=== PATIENT | male | born 1960 | race African-American/Black ===

== ENCOUNTER 2019-03-26 23:20 | Emergency (ER) | payer MEDICARE ==
--- NOTE | 2019-03-27 00:18 | RADIOLOGY REPORT (SQ) ---
EXAM DESCRIPTION: XR HIP 2 OR MORE VIEWS COMPLETED DATE/TME: 03/26/2019 23:33 CLINICAL HISTORY: 58 years, Male, Total hip, dislocated COMPARISON: None. NUMBER OF VIEWS: Three views were obtained TECHNIQUE: Frontal and lateral radiographs of the left hip were obtained LIMITATIONS: None. FINDINGS: Visualized are postsurgical changes of right total hip arthroplasty. In addition, there are also postsurgical changes of left total hip arthroplasty. However, the femoral component of the left hip prosthesis is laterally and superiorly dislocated relative to the acetabular cup. No additional osseous anomalies are appreciated. IMPRESSION: Dislocation of the left hip prosthesis, as above. copyright 2010 [email or web address]- All Rights Reserved
[2019-03-27] MEDS ORDERED: FENTANYL CITRATE INJ/PF 100 MCG/2 ML AMPUL IV ONE ×2 (00:32→06:13)
[2019-03-27] MEDS ORDERED: PROPOFOL INJ 200 MG/20 ML VIAL IV ONE ×3 (00:34→03:06)
--- NOTE | 2019-03-27 00:35 | ER Document Report ---
Entered by BI JOEL SCRIBE 03/27/19 0002 Acting as scribe for:IRMA MAYFIELD MD ED General - General Stated Complaint: LEFT HIP PAIN Time Seen by Provider: 03/26/19 23:26 Mode of Arrival: Medic Information source: Patient Notes: Patient is a 58 year old male with arthritis, HTN, HLD, presents to the emergency department complaining of left hip pain. Patient states he was sitting on porch steps approximately 2 hours ago when he felt his left hip "pop out of place". He also complains of mild BLE swelling. Patient states he recently moved here from [place] 2 months ago and has yet to establish primary care. He reports an prior episode of "irregular heart beat" that was converted on its own. Past Medical History - General Information source: Patient - Social History Smoking Status: Current Every Day Smoker Cigarette use (# per day): Yes - 1 PPD Chew tobacco use (# tins/day): No Smoking Education Provided: No Frequency of alcohol use: Rare Drug Abuse: None Lives with: Family Family History: Reviewed & Not Pertinent - Past Medical History Cardiac Medical History: Reports: Hx Hypercholesterolemia, Hx Hypertension Musculoskeletal Medical History: Reports Hx Arthritis Past Surgical History: Reports: Hx Orthopedic Surgery - BL TKR, BL total hip replacements Review of Systems - Review of Systems Constitutional: No symptoms reported EENT: No symptoms reported Cardiovascular: No symptoms reported Respiratory: No symptoms reported Gastrointestinal: No symptoms reported Genitourinary: No symptoms reported Male Genitourinary: No symptoms reported Musculoskeletal: See HPI Skin: No symptoms reported Hematologic/Lymphatic: No symptoms reported Neurological/Psychological: No symptoms reported -: Yes All other systems reviewed and negative Physical Exam - Vital signs Vitals: Pulse Resp BP Pulse Ox 98 20 134/93 H 96 03/27/19 01:58 03/27/19 01:58 03/27/19 01:58 03/27/19 01:58 - Notes Notes: GENERAL: Alert, interacts well. No acute distress. HEAD: Normocephalic, atraumatic. EYES: Pupils equal, round, and reactive to light. Extraocular movements intact. ENT: Oral mucosa moist, tongue midline. NECK: Full range of motion. Supple. Trachea midline. LUNGS: Clear to auscultation bilaterally, no wheezes, rales, or rhonchi. No respiratory distress. HEART: Regular rate and rhythm. No murmurs, gallops, or rubs. ABDOMEN: Soft, non-tender. Non-distended. Bowel sounds present in all 4 quadrants. No guarding, rigidity, or rebound. EXTREMITIES: Moves all 4 extremities spontaneously. Mild edema to the BLE. Left lower extremity is slightly shortened and externally rotated. There is a palpable defect in the left hip region. NEUROLOGICAL: Alert and oriented x3. Normal speech. PSYCH: Normal affect, normal mood. SKIN: Warm, dry, normal turgor. No rashes or lesions noted. Course - Vital Signs Vital signs: Temp Pulse Resp BP Pulse Ox 84 22 H 116/80 99 03/27/19 02:47 03/27/19 02:47 03/27/19 02:47 03/27/19 02:47 - Laboratory Result Diagrams: 03/27/19 00:45 03/27/19 00:45 Laboratory results interpreted by me: 03/27/19 03/27/19 00:45 00:45 WBC 12.7 H MCH 26.8 L RDW 17.8 H Seg Neutrophils % 79.1 H Lymphocytes % 12.3 L Absolute Neutrophils 10.0 H BUN 21 H Calcium 11.5 H Direct Bilirubin 0.9 H ALT 11 L - Diagnostic Test Radiology reviewed: Image reviewed, Reports reviewed - Left hip x-ray shows a dislocation of the prosthetic total hip. Procedures - Conscious Sedation Conscious sedation Time started: 02:00 Consent obtained: Yes Indication: Dislocated hip Pt with a mild systemic disease.: P2. - ASA Classification. Airway Evaluation: Normal anatomy Mallampati Classification: Class 2 Used during procedure: Suction available, IV access obtained, Pulse ox on pt., surveillance monitor on pt. Medications administered: Diprivan Reversal agents: None I personally performed/intraservice time: Sedation, Procedure, 30 min or less Complications: No - Joint Reduction/Fracture Care Left Hip Time completed: 02:10 Consent obtained: Yes Conscious sedation: Yes Pre-procedure NV exam: Yes Post-procedure NV exam: Yes Post-reduction x-ray: Joint reduced, Joint not reduced Complications: No Notes: 03/27/19 02:14 Following relaxation with the propofol, the patient was placed supine. The left hip and knee replaced in flexion. The left lower extremity was pulled with upward traction until the hip was felt to reenter the acetabulum. The leg was then placed back on the stretcher and an abduction pillow was ordered. A postreduction x-ray was ordered. 03/27/19 02:40 The x-ray showed the joint was unchanged from initial x-ray. The nurse did report that the patient wanted to scoot up in the bed and they helped him prior to repeating his x-ray. 03/27/19 03:04 The patient was given additional propofol, attempts were made to relocate the hip. It did feel like it fell into place, but x-rays showed that it was hung on the rim. A lateral showed it was still posteriorly. The hip was then brought into extreme abduction while pulling up at about a 45 to 60 degree angle. At the same time my assistant program manager was pushing on the femoral head from behind and it was felt to fully relocate. A repeat x-ray confirmed the prosthesis was in the proper relationship to the acetabular prosthesis. The abduction wedge pillow was then reapplied. Discharge - Discharge Clinical Impression: S/P closed reduction of dislocated total hip prosthesis Dislocation of hip joint prosthesis Qualifiers: Encounter type: initial encounter Qualified Code(s): T84.029A - Dislocation of unspecified internal joint prosthesis, initial encounter; Z96.649 - Presence of unspecified artificial hip joint Condition: Stable Disposition: HOME, SELF-CARE Additional Instructions: Dislocated Artificial Hip You have been treated for a dislocation of your hip replacement prosthesis. Once the joint prosthesis has been repositioned, you can resume your normal activities. Allow time to recover from whatever sedation was required to reduce the joint dislocation. Use a cane, crutches, or walker as needed. Pain medicine may be needed for the next few days. Do not lie on your operated hip until your doctor approves. A dislocation may occur when the hip is flexed while turned inward. There are some activities you should avoid to decrease the risk of having another dislocation. Do not cross your legs, and keep your knees apart getting in and out of your car. Do not lean forward beyond 90 degrees or raise your knee higher than the level of your hip. Do not sit in low chairs Do not pivot with your foot on the ground, but take short steps when you turn. Call your doctor for a follow-up exam as recommended. Return here if there is increasing pain, numbness or weakness in the leg or foot, or recurrent dislocation. Use the wedge pillow when you are sleeping to keep your thighs abducted. Call the [facility] on Friday to schedule an appointment this week. RETURN TO THE EMERGENCY ROOM IF ANY NEW OR WORSENING SYMPTOMS. Referrals: [facility] [Provider Group] - Follow up in 3-5 days (Call the office Friday for an appointment this week.) Scribe Attestation: 03/27/19 00:19 I personally performed the services described in the documentation, reviewed and edited the documentation which was dictated to the scribe in my presence, and it accurately records my words and actions. I personally performed the services described in the documentation, reviewed and edited the documentation which was dictated to the scribe in my presence, and it accurately records my words and actions.
[2019-03-27 01:00] LABS: ABSOLUTE BASOPHILS # (AUTO) 0.1 10^3/uL (0.0-0.2); ABSOLUTE EOSINOPHILS # (AUTO) 0.2 10^3/uL (0.0-0.6); ABSOLUTE LYMPHOCYTES (AUTO) 1.6 10^3/uL (0.5-4.7); ABSOLUTE MONOCYTES (AUTO) 0.8 10^3/uL (0.1-1.4); BASOPHILS % (AUTO) 0.7 % (0-2); EOSINOPHILS % (AUTO) 1.8 % (0-6); HEMOGLOBIN 13.7 g/dL (13.5-17.0); LYMPHOCYTES % (AUTO) 12.3 % (13-45); MEAN CORPUSCULAR HEMOGLOBIN 26.8 pg (27.0-33.4); MEAN CORPUSCULAR HGB CONC 33.4 g/dL (32.0-36.0); MEAN CORPUSCULAR VOLUME 80 fl (80-97); MONOCYTES % (AUTO) 6.1 % (3-13); PLATELET COUNT 192 10^3/uL (150-450); RED CELL DISTRIBUTION WIDTH 17.8 % (11.5-14.0); SEGMENTED NEUTROPHILS % (AUTO) 79.1 % (42-78); TOTAL CELLS COUNTED % (AUTO) 100 %; WHITE BLOOD COUNT 12.7 10^3/uL (4.0-10.5)
[2019-03-27 01:17] LABS: ALANINE AMINOTRANSFERASE 11 U/L (21-72); ALBUMIN 4.6 g/dL (3.5-5.0); ALKALINE PHOSPHATASE 117 U/L (38-126); ANION GAP 13 (5-19); ASPARTATE AMINO TRANSFERASE 18 U/L (17-59); BILIRUBIN,DIRECT 0.9 mg/dL (0.0-0.4); BILIRUBIN,TOTAL 0.9 mg/dL (0.2-1.3); BLOOD UREA NITROGEN 21 mg/dL (7-20); CALCIUM 11.5 mg/dL (8.4-10.2); CARBON DIOXIDE 26 mmol/L (22-30); CHLORIDE 102 mmol/L (98-107); GLUCOSE 102 mg/dL (75-110); POTASSIUM 3.7 mmol/L (3.6-5.0); SODIUM 141.4 mmol/L (137-145); TOTAL PROTEIN 8.1 g/dL (6.3-8.2)
[2019-03-27] MEDS ORDERED: NORMAL SALINE 1000 ML 1,000 ML IV ONE (02:05)
[2019-03-27] MEDS ORDERED: RINGERS SOLUTION,LACTATED 1,000 ML IV ONE (03:23)
--- NOTE | 2019-03-27 03:25 | RADIOLOGY REPORT (SQ) ---
EXAM DESCRIPTION: XR HIP 2 OR MORE VIEWS COMPLETED DATE/TME: 03/27/2019 02:11 CLINICAL HISTORY: 58 years, Male, post reduction COMPARISON: 03/26/2019 NUMBER OF VIEWS: One TECHNIQUE: AP view of the left hip LIMITATIONS: None. FINDINGS: The previously seen left hip dislocation has been reduced. No fracture is identified. There are changes of a left hip arthroplasty with no periprosthetic lucencies. IMPRESSION: Interval reduction of the left hip dislocation. copyright 2010 [employer]- All Rights Reserved
[2019-03-27] MEDS ORDERED: HYDROCODONE/ACETAMINOPHEN 5-325 MG (6 TAB/ER DISP) PO PRN (06:14)
[2019-03-27 06:37] VITALS: BP 122/87
== END 2019-03-27 06:37 | disposition home or self-care (01) ==
LOC: ER 23:20
DX: T84.021A Dislocation of internal left hip prosthesis, initial encounter (principal); Y83.8 Other surgical procedures as the cause of abnormal reaction of the patient, or of later complication, without mention of misadventure at the time of the procedure; I10 Essential (primary) hypertension; F17.210 Nicotine dependence, cigarettes, uncomplicated; R60.0 Localized edema
CPT/HCPCS: 99284; 96360; 99152; 36415; 85025; 80053; 73502 ×2; 27265; J3010; J7030; J7120; J2704; A9270; 96361

== ENCOUNTER 2019-07-30 16:43 | Emergency (ER) | payer MEDICARE, MEDICAID ==
--- NOTE | 2019-07-30 17:29 | RADIOLOGY REPORT (SQ) ---
EXAM DESCRIPTION: HIP LEFT AP/LATERAL COMPLETED DATE/TIME: 07/30/2019 5:20 pm REASON FOR STUDY: left hip pain COMPARISON: None. NUMBER OF VIEWS: Two views. TECHNIQUE: AP pelvis and additional frog-leg view of the left hip. LIMITATIONS: None. FINDINGS: MINERALIZATION: Normal. LEFT HIP: Left hip arthroplasty. Dislocation. RIGHT HIP: Right hip arthroplasty. PUBIS AND ISCHIUM: No fracture. PELVIS: No fracture. SACRUM: No fracture or dislocation. No worrisome bone lesions. LOWER LUMBAR SPINE: Lower lumbar degenerative disc disease and spondylosis. SOFT TISSUES: No findings. OTHER: No other significant finding. IMPRESSION: Dislocation of the left hip. Lumbar degenerative changes. TECHNICAL DOCUMENTATION: JOB ID: [id number] [employer]- All Rights Reserved Reading location - IP/workstation name: [email or web address]
[2019-07-30] MEDS ORDERED: HYDROMORPHONE HCL INJ/PF 2 MG/ML AMPULE IV ONE ×2 (17:54→20:19)
--- NOTE | 2019-07-30 18:02 | ER Document Report ---
ED Medical Screen (RME) - General Chief Complaint: Hip Pain Stated Complaint: LEFT HIP PAIN Time Seen by Provider: 07/30/19 17:54 Mode of Arrival: Medic Information source: Patient Notes: 58-year-old male with history of bilateral hip replacements bilateral knee replacements presents emergency department with left hip pain reports he sat down his hip popped out. Patient has good pedal pulse. Reports this happened to him before. Patient is complaining of pain. I have greeted and performed a rapid initial assessment of this patient. A comprehensive ED assessment and evaluation of the patient, analysis of test results and completion of the medical decision making process will be conducted by additional ED providers. Dictation of this chart was performed using voice recognition software; therefore, there may be some unintended grammatical errors. TRAVEL OUTSIDE OF THE [place] IN LAST 30 DAYS: No - Related Data Allergies/Adverse Reactions: No Known Allergies Allergy (Unverified 07/30/19 17:01) Home Medications: gabapentin, atorvastatin, amlodipine, vit d, chlortalidone, aleve Past Medical History - Social History Chew tobacco use (# tins/day): No Frequency of alcohol use: None Drug Abuse: None - Past Medical History Cardiac Medical History: Reports: Hx Hypercholesterolemia, Hx Hypertension Musculoskeltal Medical History: Reports Hx Arthritis Past Surgical History: Reports: Hx Orthopedic Surgery - BL TKR, BL total hip replacements Physical Exam - Vital signs Vitals: Temp Pulse Resp BP Pulse Ox 97.7 F 74 18 126/81 H 100 07/30/19 16:52 07/30/19 16:52 07/30/19 16:52 07/30/19 16:52 07/30/19 16:52 Course - Vital Signs Vital signs: Temp Pulse Resp BP Pulse Ox 97.7 F 74 18 126/81 H 100 07/30/19 16:52 07/30/19 16:52 07/30/19 16:52 07/30/19 16:52 07/30/19 16:52
[2019-07-30] MEDS ORDERED: PROPOFOL INJ 200 MG/20 ML VIAL IV ONE (19:02)
--- NOTE | 2019-07-30 21:15 | PDOC CONSULTATION ---
Consultation Consult Date: 07/30/19 Provider Consulted: WOLF ARZOLA JR History of Present Illness History of Present Illness: YISEL ANTOINE is a 58 year old male with history of bilateral hip replacements bilateral knee replacements presents emergency department with left hip pain reports he sat down his hip popped out. He also had this occur a few months ago. His hip replacement was about 1 year ago and since that time he has had frequent sensations of the hip feeling loose and "popping out" but he explains it usually pops back in on its own until the last few months. This is his second presentation to this ED. Pain is mild but controlled at this time. he is comfortable in the bed. His hip replacement was with a group in [place]. 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 He denies associated symptoms, denies fall, denies distal paresthesias. Past Medical History Cardiac Medical History: Reports: Hyperlipidema, Hypertension Musculoskeltal Medical History: Reports: Arthritis Past Surgical History Past Surgical History: Reports: Orthopedic Surgery - BL TKR, BL total hip replacements Social History Smoking Status: Current Every Day Smoker Electronic Cigarette use?: No - Advance Directive Resuscitation Status: Full Code Family History Family History: Reviewed & Not Pertinent Parental Family History Reviewed: No Children Family History Reviewed: No Sibling(s) Family History Reviewed.: No Medication/Allergy Allergies/Adverse Reactions: No Known Allergies Allergy (Unverified 07/30/19 17:01) Review of Systems Review of Systems: Constitutional: ABSENT: anorexia, chills, night sweats Cardiovascular: ABSENT: chest pain Respiratory: ABSENT: dyspnea Gastrointestinal: ABSENT: vomiting Genitourinary: ABSENT: dysuria Integumentary: ABSENT: rash Neurological: ABSENT: confusion, memory loss, numbness Psychiatric: ABSENT: hallucinations Hematologic/Lymphatic: ABSENT: easy bleeding All negative as above aside from that reported in the HPI and the following: Physical Exam Vital Signs: Temp Pulse Resp BP Pulse Ox 97.7 F 74 18 126/81 H 100 07/30/19 16:52 07/30/19 16:52 07/30/19 16:52 07/30/19 16:52 07/30/19 16:52 Intake & Output 07/29/19 07/30/19 07/31/19 06:59 06:59 06:59 Weight 110.677 kg Physical Exam: general appearance: PRESENT: no acute distress, cooperative, well-nourished Head exam: PRESENT: atraumatic, normocephalic Eye exam: PRESENT: EOMI Ear exam: PRESENT: normal external ear exam Mouth exam: PRESENT: neck supple Neck exam: ABSENT: tracheal deviation Respiratory exam: PRESENT: symmetrical, unlabored. ABSENT: accessory muscle use, wheezes Pulses: PRESENT: normal radial pulses, normal dorsalis pedis pul Vascular exam: PRESENT: normal capillary refill GI/Abdominal exam: ABSENT: distended, firm Extremities exam: PRESENT: full ROM of bilateral shoulders, elbows wrists, knees, ankles without pain Musculoskeletal exam: PRESENT: full ROM, normal inspection Neurological exam: PRESENT: alert, awake, oriented to person, oriented to place, oriented to time Psychiatric exam: PRESENT: appropriate affect. ABSENT: agitated Focused psych exam: ABSENT: catatonic Skin exam: PRESENT: intact. ABSENT: dry All as above aside from that noted in the HPI and the following: Left leg shortened and externally rotated. Pulses 2+ Sensation grossly intact distally No pain about the left knee Compartments soft. Results Impressions: Hip X-Ray 07/30/19 00:00 IMPRESSION: Dislocation of the left hip. Lumbar degenerative changes. Assessment & Plan - Diagnosis (1) Failure of left total hip arthroplasty with dislocation of hip Qualifiers: Encounter type: initial encounter Qualified Code(s): T84.021A - Dislocation of internal left hip prosthesis, initial encounter Plan: - I discussed risks and benefits with the patient for closed reduction in the ED. he provided verbal consent for reduction under conscious sedation. Conscious sedation was administered by the ED provider and after adequate sedation, A reduction maneuver was performed. Immediately following, a flat plate was taken in the room that demonstrated concentric reduction. He was placed in a Knee Immobilizer. - I had a thorough conversation prior to sedation regarding the future treatment plan - He is to follow with me in the office on Friday - Until then he is to wear the KI at all times and observe hip precautions, WBAT - Pain control per ED - I provided him with my information for contact and scheduling.
--- NOTE | 2019-07-30 21:17 | Operative Report ---
Operative Report DATE OF SURGERY: 07/30/19 PREOPERATIVE DIAGNOSIS: Left prosthetic hip dislocation POSTOPERATIVE DIAGNOSIS: Same OPERATION: Closed reduction of the left hip under conscious sedation SURGEON: WOLF ARZOLA JR ANESTHESIA: Moderate Sedation COMPLICATIONS: None ESTIMATED BLOOD LOSS: none PROCEDURE: - I discussed risks and benefits with the patient for closed reduction in the ED. he provided verbal consent for reduction under conscious sedation. Conscious sedation was administered by the ED provider and after adequate sadie tion, A reduction maneuver was performed. Immediately following, a flat plate was taken in the room that demonstrated concentric reduction. He was placed in a Knee Immobilizer
--- NOTE | 2019-07-30 21:25 | RADIOLOGY REPORT (SQ) ---
2 VIEWS OF LEFT HIP EXAM DATE: 07/30/2019 12:00 AM CDT HISTORY: Immediate post reduction. COMPARISON: Radiographs from earlier the same day. FINDINGS: There has been interval reduction of the left prosthetic hip dislocation. The left hip arthroplasty appears in anatomic alignment. No definite periprosthetic fracture seen. IMPRESSION: Interval reduction of left prosthetic hip dislocation with hardware in anatomic alignment.
--- NOTE | 2019-07-30 21:35 | ER Document Report ---
ED General - General Chief Complaint: Hip Pain Stated Complaint: LEFT HIP PAIN Time Seen by Provider: 07/30/19 17:54 Mode of Arrival: Medic TRAVEL OUTSIDE OF THE [place] IN LAST 30 DAYS: No - HPI Notes: Patient is a very pleasant 58-year-old male who presents to the emergency department for evaluation of left lower extremity pain. He believes he has a dislocated hip. This is happened to him in the past. He states this happened today when he just sat down. He states that seems to be popping in and out intermittently, but states he could not get it to go back in today. He has pain that he rates a 9 out of 10. It is in his hip area and radiates into his buttock and down his leg. He denies any numbness or tingling. He had his hips replaced in [place], [place]. - Related Data Allergies/Adverse Reactions: No Known Allergies Allergy (Unverified 07/30/19 17:01) Home Medications: gabapentin, atorvastatin, amlodipine, vit d, chlortalidone, aleve Past Medical History - General Information source: Patient - Social History Smoking Status: Current Every Day Smoker Chew tobacco use (# tins/day): No Frequency of alcohol use: None Drug Abuse: None Family History: Reviewed & Not Pertinent Patient has suicidal ideation: No Patient has homicidal ideation: No - Past Medical History Cardiac Medical History: Reports: Hx Hypercholesterolemia, Hx Hypertension Musculoskeletal Medical History: Reports Hx Arthritis Past Surgical History: Reports: Hx Orthopedic Surgery - BL TKR, BL total hip replacements Review of Systems - Review of Systems Constitutional: No symptoms reported EENT: No symptoms reported Cardiovascular: No symptoms reported Respiratory: No symptoms reported Gastrointestinal: No symptoms reported Genitourinary: No symptoms reported Musculoskeletal: Back pain Skin: No symptoms reported Neurological/Psychological: No symptoms reported Physical Exam - Vital signs Vitals: Temp Pulse Resp BP Pulse Ox 97.7 F 74 18 126/81 H 100 07/30/19 16:52 07/30/19 16:52 07/30/19 16:52 07/30/19 16:52 07/30/19 16:52 - Notes Notes: This is a pleasant 58-year-old male who appears her stated age and amount of mild distress. Head is neuropsych and atraumatic. Pupils are equal round, reactive to light. Mallampati 1, uvula is midline. Heart is regular rate and rhythm, lungs are clear to station bilaterally. Examination of the left lower extremity yields a shortened and externally rotated extremity. He is neurovascularly intact distally. I am able to palpate the head of the hip prosthesis outside of the expected location. Course - Re-evaluation Re-evalutation: 07/30/19 21:32 Patient resents emergency department for evaluation. He has an obvious left hip prosthesis dislocation. Decision was made to reduce with sedation. Given his size and the repeated dislocations, decision was made to consult orthopedics. Dr. Marley did present to the ED and performed the procedure well I managed conscious sedation. There were no comp occasions. Patient will follow up with Dr. Marley on Friday. - Vital Signs Vital signs: Temp Pulse Resp BP Pulse Ox 97.7 F 71 16 139/90 H 100 07/30/19 16:52 07/30/19 21:23 07/30/19 21:23 07/30/19 21:23 07/30/19 21:23 Procedures - Conscious Sedation Conscious sedation Consent obtained: Yes Indication: Left hip dislocation Last meal: 11 AM Normal healthy pt.: P1. - ASA Classification Airway Evaluation: Normal anatomy Mallampati Classification: Class 1 Used during procedure: Suction available, IV access obtained, Pulse ox on pt., hospital monitor on pt. Medications administered: Diprivan - 80 mg total Reversal agents: None I personally performed/intraservice time: Sedation, 30 min or less Complications: No Discharge - Discharge Clinical Impression: Failure of left total hip arthroplasty with dislocation of hip Qualifiers: Encounter type: initial encounter Qualified Code(s): T84.021A - Dislocation of internal left hip prosthesis, initial encounter Condition: Stable Disposition: HOME, SELF-CARE Instructions: Dislocated Artificial Hip ([facility]) Additional Instructions: Follow instructions as per Dr. Marley, and follow-up with him on Friday. Return to the emergency department with worsening or new concerning symptoms of any sort.
[2019-07-31 00:38] VITALS: BP 153/102
--- NOTE | 2019-07-31 01:05 | RADIOLOGY REPORT (SQ) ---
EXAM DESCRIPTION: CT pelvis without contrast CLINICAL HISTORY: 58 years Male, eval left hip prosthesis, previous dislocations COMPARISON: None. TECHNIQUE: Axial images of the pelvis were performed without the use of intravenous contrast, with sagittal and coronal reformatted images. This exam was performed according to our departmental dose-optimization program which includes use of Automated Exposure Control, adjustment of the mA and/or kV according to patient size and/or use of iterative reconstruction technique. FINDINGS: There is a 9.1 x 9 x 3.7 cm area of low density in the left gluteal muscles, most compatible with hematoma. There is probable swelling of the left iliopsoas muscle, anterior to the hip joint. No fracture or dislocation. The hip prostheses are in satisfactory position. There are postoperative and degenerative changes involving the lower lumbar spine. IMPRESSION: Probable hematoma within the left gluteal muscles. Probable swelling of the left iliopsoas muscle, anterior to the hip joint.
== END 2019-07-31 00:39 | disposition home or self-care (01) ==
LOC: ER 16:43
DX: T84.021A Dislocation of internal left hip prosthesis, initial encounter (principal); M25.552 Pain in left hip; X58.XXXA Exposure to other specified factors, initial encounter; F17.200 Nicotine dependence, unspecified, uncomplicated; E78.00 Pure hypercholesterolemia, unspecified; I10 Essential (primary) hypertension; Z96.653 Presence of artificial knee joint, bilateral; Z96.643 Presence of artificial hip joint, bilateral
CPT/HCPCS: 73502; 72192; 27265; L1830; J1170; 96374; 96376; 99284; 99152

== ENCOUNTER 2019-08-31 14:10 | Inpatient (IN) | payer MEDICARE, MEDICAID ==
[2019-08-31] MEDS ORDERED: HYDROMORPHONE HCL INJ/PF 2 MG/ML AMPULE IV ONE ×2 (14:40→18:06)
[2019-08-31] MEDS ORDERED: ONDANSETRON HCL INJ/PF 4 MG/2 ML SDV IV ONE (14:41)
--- NOTE | 2019-08-31 14:43 | ER Document Report ---
ED General - General Chief Complaint: Hip Pain Stated Complaint: HIP PAIN Time Seen by Provider: 08/31/19 14:33 Primary Care Provider: GREGORIO MORRIS JR, MD [Primary Care Provider] - Follow up as needed TRAVEL OUTSIDE OF THE [place] IN LAST 30 DAYS: No - Related Data Allergies/Adverse Reactions: No Known Allergies Allergy (Verified 08/31/19 14:54) Past Medical History - Social History Smoking Status: Current Every Day Smoker Family History: Reviewed & Not Pertinent - Past Medical History Cardiac Medical History: Reports: Hx Hypercholesterolemia, Hx Hypertension Musculoskeletal Medical History: Reports Hx Arthritis Past Surgical History: Reports: Hx Orthopedic Surgery - BL TKR, BL total hip replacements Physical Exam - Vital signs Vitals: Pulse Ox 100 08/31/19 15:06 - Notes Notes: Patient is to emerge department with possible dislocation of his left hip. He says he was sitting on a barstool in forward and felt a pop out. Is not able to put any weight on it. He denies falls or trauma to the area. There is no numbness in his foot. Ports this is a third time is happened in the past several months. His medical history is as significant for hypertension and recently diagnosed with prostate cancer Social history he smokes but does not drink. Review of systems pertinent positives and negatives as in HPI otherwise all other systems were reviewed and acutely negative Course - Re-evaluation Re-evalutation: 08/31/19 18:23 ED patient is remained stable. Did discuss case with orthopedics Paulo patient be admitted to the hospital and they will make arrangements for patient to go to the operating room - Vital Signs Vital signs: Temp Pulse Resp BP Pulse Ox 97.6 F 74 15 118/88 H 100 08/31/19 15:08 08/31/19 16:45 08/31/19 17:26 08/31/19 17:26 08/31/19 17:26 Procedures - Conscious Sedation Conscious sedation Consent obtained: Yes Prior complications: Procedural sedation Normal healthy pt.: P1. - ASA Classification Airway Evaluation: Normal anatomy Mallampati Classification: Class 1 Used during procedure: Suction available Medications administered: Diprivan I personally performed/intraservice time: Sedation, Procedure Complications: No Notes: Patient tolerated procedure well - Joint Reduction/Fracture Care Left Hip Consent obtained: Yes Conscious sedation: Yes Pre-procedure NV exam: Yes Fracture: Other - Dislocated hip Post-procedure NV exam: Yes Post-reduction x-ray: Joint not reduced Reduction attempts: 2 Notes: 08/31/19 18:22 After adequate sedation standard procedure was used the knee was flexed counterpressure was applied to the pelvis the hip was elevated with palpable pop. However when straightening the leg it was not at the length. A second attempt was made again with a pop. And leg appeared to be length however x-ray still shows hip was dislocated Discharge - Discharge Clinical Impression: Failure of left total hip arthroplasty with dislocation of hip Qualifiers: Encounter type: initial encounter Qualified Code(s): T84.021A - Dislocation of internal left hip prosthesis, initial encounter Disposition: ADMITTED OBSERVATION Admitting Provider: [facility] Unit Admitted: Surgical Floor Referrals: GREGORIO MORRIS JR, MD [Primary Care Provider] - Follow up as needed
--- NOTE | 2019-08-31 16:26 | RADIOLOGY REPORT (SQ) ---
EXAM DESCRIPTION: HIP LEFT AP/LATERAL COMPLETED DATE/TIME: 08/31/2019 3:47 pm REASON FOR STUDY: bed 13 julian tenderness felt pop r/o dislocation COMPARISON: CT of the pelvis without contrast from 07/31/2019. NUMBER OF VIEWS: Two views. TECHNIQUE: AP pelvis and additional frog-leg view of the left hip. LIMITATIONS: None. FINDINGS: MINERALIZATION: Osteopenia. LEFT HIP: Superior and lateral dislocation of the femoral component of the MAGALI relative to its acetab ular component. RIGHT HIP: The MAGALI hardware is in anatomic alignment. There is no periprosthetic fracture. PUBIS AND ISCHIUM: The the ilioischial and iliopectineal lines are intact. There is no diastasis of the pubic symphysis. PELVIS: No fracture. SACRUM: The sacrum is obscured by overlying bowel gas. LOWER LUMBAR SPINE: Advanced degenerative spondylosis of the lumbar spine. SOFT TISSUES: No findings. OTHER: No other finding. IMPRESSION: Dislocation of the left MAGALI as detailed above. TECHNICAL DOCUMENTATION: JOB ID: [id number] [employer]- All Rights Reserved Reading location - IP/workstation name: [email or web address]
[2019-08-31] MEDS ORDERED: PROPOFOL INJ 200 MG/20 ML VIAL IV ONE ×2 (16:44→18:02)
[2019-08-31 18:36] LABS: ABSOLUTE BASOPHILS # (AUTO) 0.1 10^3/uL (0.0-0.2); ABSOLUTE EOSINOPHILS # (AUTO) 0.4 10^3/uL (0.0-0.6); ABSOLUTE LYMPHOCYTES (AUTO) 2.5 10^3/uL (0.5-4.7); ABSOLUTE MONOCYTES (AUTO) 0.7 10^3/uL (0.1-1.4); ABSOLUTE NEUT (AUTO) 5.3 10^3/uL (1.7-8.2); BASOPHILS % (AUTO) 0.9 % (0-2); EOSINOPHILS % (AUTO) 4.4 % (0-6); HEMATOCRIT 37.6 % (37.9-51.0); HEMOGLOBIN 12.3 g/dL (13.5-17.0); LYMPHOCYTES % (AUTO) 27.5 % (13-45); MEAN CORPUSCULAR HEMOGLOBIN 25.3 pg (27.0-33.4); MEAN CORPUSCULAR HGB CONC 32.8 g/dL (32.0-36.0); MEAN CORPUSCULAR VOLUME 77 fl (80-97); MONOCYTES % (AUTO) 7.9 % (3-13); PLATELET COUNT 204 10^3/uL (150-450); RED BLOOD COUNT 4.87 10^6/uL (4.35-5.55); RED CELL DISTRIBUTION WIDTH 16.8 % (11.5-14.0); SEGMENTED NEUTROPHILS % (AUTO) 59.3 % (42-78); TOTAL CELLS COUNTED % (AUTO) 100 %; WHITE BLOOD COUNT 8.9 10^3/uL (4.0-10.5)
--- NOTE | 2019-08-31 18:41 | RADIOLOGY REPORT (SQ) ---
EXAM DESCRIPTION: PELVIS AP COMPLETED DATE/TIME: 08/31/2019 6:01 pm REASON FOR STUDY: LEFT HIP REDUCTION COMPARISON: None. NUMBER OF VIEWS: One view TECHNIQUE: AP Pelvis LIMITATIONS: None. FINDINGS: MINERALIZATION: Normal. HIPS: No acute fracture. 4.5 cm lateral -3 cm superior left total hip arthroplasty Dislocation. No w orrisome bone lesions. PELVIS AND SACRUM: No acute fracture or dislocation. No worrisome bone lesions. PUBIS AND ISCHIUM: No acute fracture. LOWER LUMBAR SPINE: Severe degenerative disc disease. SOFT TISSUES: No findings. OTHER: No other significant finding. IMPRESSION: No acute fracture. 4.5 cm lateral -3 cm superior left total hip arthroplasty Dislocatio n. COMMENT: Pelvic fractures are often occult on plain radiographs. If strong clinical suspicion for f racture, recommend CT or MR. TECHNICAL DOCUMENTATION: JOB ID: [id number] [employer]- All Rights Reserved Reading location - IP/workstation name: [email or web address]
[2019-08-31 19:15] LABS: ANION GAP 12 (5-19); BLOOD UREA NITROGEN 22 mg/dL (7-20); CALCIUM 10.9 mg/dL (8.4-10.2); CARBON DIOXIDE 24 mmol/L (22-30); CHLORIDE 100 mmol/L (98-107); GLUCOSE 84 mg/dL (75-110); POTASSIUM 4.1 mmol/L (3.6-5.0)
[2019-09-01] MEDS: MORPHINE SULFATE 10 MG/ML INJ IV PRN ×6 (00:04→17:23)
--- NOTE | 2019-09-01 07:23 | PDOC H&P ---
History of Present Illness Admission Date/PCP: 08/31/19 18:33 GREGORIO MORRIS JR, MD History of Present Illness: YISEL ANTOINE is a 58 year old male The patient is a 58-year-old black male who was evaluated in the emergency room for left hip pain. Pertinent past medical history is notable for the patient being evaluated and treated for a Rigo 8 prostate carcinoma. He is status p ost bilateral hip arthroplasty in 2017 at [facility]. He has had no problems with the right hip. He has had 2 previous prosthetic dislocations of the left hip that were treated with closed reductions. He has been evaluated by [facility] orthopedics and told that at least part of his problem is a lumbar degenerative disc disease with a degenerative scoliosis leading to pelvic obliquity and this has contributed to his hip instability. Past Medical History Cardiac Medical History: Reports: Hyperlipidema, Hypertension, Other - Prostate carcinoma Musculoskeltal Medical History: Reports: Arthritis Past Surgical History Past Surgical History: Reports: Orthopedic Surgery - BL TKR, BL total hip replacements Social History Information Source: Patient, [facility] Records Smoking Status: Current Every Day Smoker Electronic Cigarette use?: No Number of Years Smokin Frequency of Alcohol Use: Social Family History Family History: Reviewed & Not Pertinent Parental Family History Reviewed: No Children Family History Reviewed: No Sibling(s) Family History Reviewed.: No Medication/Allergy Home Medications: Amlodipine Besylate [Norvasc 10 mg Tablet] 10 mg PO DAILY 08/31/19 Atorvastatin Calcium [Lipitor 10 mg Tablet] 10 mg PO QHS 08/31/19 Chlorthalidone [Hygroton 25 mg Tablet] 25 mg PO DAILY 08/31/19 Gabapentin [Neurontin 400 mg Capsule] 400 mg PO Q8 08/31/19 Meloxicam [Mobic 15 mg Tablet] 15 mg PO DAILY 08/31/19 Naproxen Sodium [Aleve] 440 mg PO Q8HP PRN 08/31/19 Sildenafil Citrate [Viagra] 100 mg PO PRN PRN 08/31/19 Allergies/Adverse Reactions: No Known Allergies Allergy (Verified 08/31/19 14:54) Review of Systems All systems: as per PMH Physical Exam Vital Signs: Temp Pulse Resp BP Pulse Ox 36.8 C 72 18 144/85 H 100 09/01/19 00:29 09/01/19 00:29 09/01/19 00:29 09/01/19 00:29 09/01/19 00:29 Intake & Output 08/31/19 09/01/19 09/02/19 06:59 06:59 06:59 Weight 97.2 kg Physical Exam: Patient is a moderately built middle-aged black male lying in hospital bed. The patient is alert, interactive, and appropriate. General appearance: PRESENT: no acute distress, mild distress Head exam: PRESENT: normocephalic Respiratory exam: PRESENT: unlabored Cardiovascular exam: PRESENT: RRR Pulses: PRESENT: +1 pedal pulses bilateral Vascular exam: PRESENT: normal capillary refill GI/Abdominal exam: PRESENT: soft Rectal exam: PRESENT: deferred Extremities exam: PRESENT: other - Lower extremities externally rotated and shortened. Distal neurovascular examination is intact. Passive range of motion is painful. There is no skin abnormalities. Neurological exam: PRESENT: alert, awake, oriented to person, oriented to place, oriented to time, oriented to situation. ABSENT: motor sensory deficit Psychiatric exam: PRESENT: appropriate affect, normal mood. ABSENT: homicidal ideation, suicidal ideation Skin exam: PRESENT: dry, intact, warm. ABSENT: cyanosis, rash Results Laboratory Results: 08/31/19 18:25 08/31/19 18:25 08/31/19 08/31/19 18:25 18:25 WBC 8.9 RBC 4.87 Hgb 12.3 L Hct 37.6 L MCV 77 L MCH 25.3 L MCHC 32.8 RDW 16.8 H Plt Count 204 Seg Neutrophils % 59.3 Sodium 136.3 L Potassium 4.1 Chloride 100 Carbon Dioxide 24 Anion Gap 12 BUN 22 H Creatinine 1.26 H Est GFR ( Amer) > 60 Glucose 84 Calcium 10.9 H Impressions: Hip X-Ray 08/31/19 00:00 IMPRESSION: Dislocation of the left MAGALI as detailed above. Pelvis X-Ray 08/31/19 00:00 IMPRESSION: No acute fracture. 4.5 cm lateral -3 cm superior left total hip arthroplasty Dislocation. Status: Imported from PACS Assessment & Plan - Diagnosis (1) Failure of left total hip arthroplasty with dislocation of hip Qualifiers: Encounter type: initial encounter Qualified Code(s): T84.021A - Dislocation of internal left hip prosthesis, initial encounter Is this a current diagnosis for this admission?: Yes Plan: Plan will be for a closed reduction of the left hip, evaluation of position of instability, and application of a hip orthosis to help maintain the reduction. - Time Time Spent: 50 to 70 Minutes Anticipated discharge: Home with Homehealth Within: within 24 hours
[2019-09-01] MEDS: RINGERS SOLUTION,LACTATED 1,000 ML IV PRN ×2 (11:23→20:56)
[2019-09-01] MEDS ORDERED: FENTANYL CITRATE INJ/PF 100 MCG/2 ML AMPUL ONE (14:12)
[2019-09-01] MEDS ORDERED: MIDAZOLAM 2 MG/2 ML INJ ONE (14:12)
[2019-09-01] MEDS ORDERED: PROPOFOL INJ 200 MG/20 ML VIAL IV ONE (14:12)
[2019-09-01] MEDS ORDERED: ONDANSETRON HCL INJ/PF 4 MG/2 ML SDV ONE (14:12)
[2019-09-01] MEDS ORDERED: MORPHINE SULFATE 10 MG/ML INJ IV PRN (14:34)
[2019-09-01] MEDS ORDERED: MEPERIDINE HCL/PF INJ 25 MG/1 ML DISP.SYRIN IV PRN (14:34)
[2019-09-01] MEDS ORDERED: DIPHENHYDRAMINE HCL 50 MG/ML VIAL IV PRN (14:34)
[2019-09-01] MEDS ORDERED: FENTANYL CITRATE INJ/PF 100 MCG/2 ML AMPUL IV PRN ×3 (14:34)
[2019-09-01] MEDS ORDERED: PROMETHAZINE HCL INJ 25 MG/1 ML VIAL IV PRN (14:34)
--- NOTE | 2019-09-01 14:56 | Operative Report ---
Operative Report DATE OF SURGERY: 09/01/19 PREOPERATIVE DIAGNOSIS: Left prosthetic hip dislocation OPERATION: Attempted but unsuccessful closed reduction left prosthetic hip SURGEON: RIGO TREJO ANESTHESIA: LMAC COMPLICATIONS: Unsuccessful closed reduction PROCEDURE: With the patient supine on the operating table the left lower extremity is manipulated under fluoroscopic guidance. It is very easy to bring the femoral head down to the level of the cup and I can get it positioned over the surface of the cup in 2 planes. What does not happen however is that the head never actually drops into the cup but sits on the surface of it. This is examined under fluoroscopy and with multiple types of manipulation of the lower extremity including flexion and internal rotation as well as abduction and external rotation. The reason for the unsuccessful reduction is unclear. It may represent soft tissue interposed between the head and the cup although I do not think so because I get of tactile feedback of [id number] as I attempt to reduce it. It may be that there is a problem with the underlying polyethylene liner. At this point however I do not think that it is appropriate to perform an open reduction because I know that the patient has an unstable hip that needs to be revised and I do not have the implants at this point to revise the hip. Therefore the plan will be to return to the floor currently with the hip and abduction pillow and schedule a revision surgery for Friday.
--- NOTE | 2019-09-01 15:28 | RADIOLOGY REPORT (SQ) ---
EXAM DESCRIPTION: HIP IN OPERATING RM; NO CHG FLUORO COMPLETED DATE/TIME: 09/01/2019 3:16 pm REASON FOR STUDY: ATTEMPTED CLOSED REDUCTION LEFT HIP ASST WITH FLUORO IN OR COMPARISON: None. FLUOROSCOPY TIME: 1.0 minutes Spot images saved to PACS. TECHNIQUE: Intra-operative images acquired during surgical procedure to evaluate progress. NUMBER OF IMAGES: 2 LIMITATIONS: None. FINDINGS: Fluoroscopy was provided for intraoperative procedure. Please refer to the operative repo rt for further discussion. IMPRESSION: IMAGE(S) OBTAINED DURING PROCEDURE. COMMENT: Quality ID 145: Final reports for procedures using fluoroscopy that document radiation exp osure indices, or exposure time and number of fluorographic images (if radiation exposure indices are not available) Please consult full operative report of the attending physician for description of the procedure. TECHNICAL DOCUMENTATION: JOB ID: [id number] [employer]- All Rights Reserved Reading location - IP/workstation name: [email or web address]
--- NOTE | 2019-09-01 15:28 | RADIOLOGY REPORT (SQ) ---
EXAM DESCRIPTION: HIP IN OPERATING RM; NO CHG FLUORO COMPLETED DATE/TIME: 09/01/2019 3:16 pm REASON FOR STUDY: ATTEMPTED CLOSED REDUCTION LEFT HIP ASST WITH FLUORO IN OR COMPARISON: None. FLUOROSCOPY TIME: 1.0 minutes Spot images saved to PACS. TECHNIQUE: Intra-operative images acquired during surgical procedure to evaluate progress. NUMBER OF IMAGES: 2 LIMITATIONS: None. FINDINGS: Fluoroscopy was provided for intraoperative procedure. Please refer to the operative repo rt for further discussion. IMPRESSION: IMAGE(S) OBTAINED DURING PROCEDURE. COMMENT: Quality ID 145: Final reports for procedures using fluoroscopy that document radiation exp osure indices, or exposure time and number of fluorographic images (if radiation exposure indices are not available) Please consult full operative report of the attending physician for description of the procedure. TECHNICAL DOCUMENTATION: JOB ID: [id number] [employer]- All Rights Reserved Reading location - IP/workstation name: [email or web address]
[2019-09-01] MEDS: OXYCODONE HCL IR 5 MG TABLET PO PRN (19:48)
[2019-09-02] MEDS: OXYCODONE HCL IR 5 MG TABLET PO PRN ×3 (02:04→18:41)
[2019-09-02 03:55] LABS: HEMATOCRIT 34.2 % (37.9-51.0); HEMOGLOBIN 11.3 g/dL (13.5-17.0); MEAN CORPUSCULAR HEMOGLOBIN 25.3 pg (27.0-33.4); MEAN CORPUSCULAR HGB CONC 33.1 g/dL (32.0-36.0); MEAN CORPUSCULAR VOLUME 77 fl (80-97); PLATELET COUNT 175 10^3/uL (150-450); RED BLOOD COUNT 4.47 10^6/uL (4.35-5.55); RED CELL DISTRIBUTION WIDTH 16.8 % (11.5-14.0); WHITE BLOOD COUNT 7.1 10^3/uL (4.0-10.5)
[2019-09-02 04:00] LABS: INTERNATIONAL RATION (INR) 1.11; PROTHROMBIN TIME 14.3 SEC (11.4-15.4)
[2019-09-02 04:14] LABS: ANION GAP 9 (5-19); BLOOD UREA NITROGEN 21 mg/dL (7-20); C-REACTIVE PROTEIN 24.3 mg/L (<10.0); CALCIUM 10.3 mg/dL (8.4-10.2); CARBON DIOXIDE 27 mmol/L (22-30); CHLORIDE 102 mmol/L (98-107); GLUCOSE 102 mg/dL (75-110); POTASSIUM 4.3 mmol/L (3.6-5.0)
[2019-09-02 04:32] LABS: ERYTHROCYTE SEDIMENTATION RATE 52 mm/hr (0-20)
[2019-09-02] MEDS: RINGERS SOLUTION,LACTATED 1,000 ML IV PRN ×3 (06:00→18:41)
--- NOTE | 2019-09-02 07:17 | PDOC PROGRESS REPORT ---
Subjective Progress Note for:: 09/02/19 Reason For Visit: LEFT HIP DISLOCATION 58-year-old black male now postop day 1 from an attempted but unsuccessful closed reduction of a left prosthetic hip dislocation. Patient is complaining about inflammation of his lip presumably associated with the anesthesia yesterday. Physical Exam Vital Signs: Temp Pulse Resp BP Pulse Ox 37.4 C 89 18 137/87 H 100 09/02/19 00:13 09/02/19 00:13 09/02/19 00:13 09/02/19 00:13 09/02/19 00:13 Intake & Output 09/01/19 09/02/19 09/03/19 06:59 06:59 06:59 Intake Total 4060 Output Total 2375 Balance 1685 Weight 97.2 kg 102.7 kg General appearance: PRESENT: no acute distress, mild distress Head exam: PRESENT: normocephalic Respiratory exam: PRESENT: unlabored Cardiovascular exam: PRESENT: RRR GI/Abdominal exam: PRESENT: soft Rectal exam: PRESENT: deferred Extremities exam: PRESENT: other - Leg length equal. Patient in abduction pillow. Neurological exam: PRESENT: alert, awake, oriented to person, oriented to place, oriented to time, oriented to situation. ABSENT: motor sensory deficit Psychiatric exam: PRESENT: appropriate affect, normal mood. ABSENT: homicidal ideation, suicidal ideation Skin exam: PRESENT: dry, intact, warm. ABSENT: cyanosis, rash Results Laboratory Results: 09/02/19 03:38 09/02/19 03:38 09/02/19 09/02/19 09/02/19 03:38 03:38 03:38 WBC 7.1 RBC 4.47 Hgb 11.3 L Hct 34.2 L MCV 77 L MCH 25.3 L MCHC 33.1 RDW 16.8 H Plt Count 175 Sodium 137.8 Potassium 4.3 Chloride 102 Carbon Dioxide 27 Anion Gap 9 BUN 21 H Creatinine 1.38 H Est GFR ( Amer) > 60 Glucose 102 Calcium 10.3 H C-Reactive Protein 24.3 H Prostate Specific Ag 8.830 H Blood Type O POSITIVE Antibody Screen NEGATIVE Impressions: Pelvis X-Ray 08/31/19 00:00 IMPRESSION: No acute fracture. 4.5 cm lateral -3 cm superior left total hip arthroplasty Dislocation. Fluoroscopy 09/01/19 00:00 IMPRESSION: IMAGE(S) OBTAINED DURING PROCEDURE. Hip X-Ray 09/01/19 00:00 IMPRESSION: IMAGE(S) OBTAINED DURING PROCEDURE. Status: Imported from PACS Assessment & Plan - Diagnosis (1) Failure of left total hip arthroplasty with dislocation of hip Qualifiers: Encounter type: initial encounter Qualified Code(s): T84.021A - Dislocation of internal left hip prosthesis, initial encounter Is this a current diagnosis for this admission?: Yes Plan: At this point the patient will require an open reduction of the hip. Because of the chronic instability this should be coupled with a revision of the implant. Current efforts are to retrieve the previous operative notes to ensure that this is in fact a Raymond system. Tentative plan will be to proceed with a left hip revision arthroplasty tomorrow. (2) Prostate carcinoma Is this a current diagnosis for this admission?: Yes Plan: The patient is status post a prostate biopsy with an elevated PSA and a Brantingham score of 8. He was scheduled for a whole body bone scan by his urologist in [place] to assess metastatic disease prior to embarking upon a prostatectomy. This sequence of events has been interrupted because of the patient's current hospitalization. In order to facilitate the patient's oncologic care I have requested a PSA and a whole-body bone scan during his current hospitalization. - Time Time Spent with patient: 15-24 minutes Anticipated discharge: Other Within: Other
--- NOTE | 2019-09-02 08:41 | RADIOLOGY REPORT (SQ) ---
EXAM DESCRIPTION: CHEST SINGLE VIEW COMPLETED DATE/TIME: 09/02/2019 8:06 am REASON FOR STUDY: preop clearance COMPARISON: None. EXAM PARAMETERS: NUMBER OF VIEWS: One view. TECHNIQUE: Single frontal radiographic view of the chest acquired. RADIATION DOSE: NA LIMITATIONS: None. FINDINGS: LUNGS AND PLEURA: No opacities, masses or pneumothorax. No pleural effusion. MEDIASTINUM AND HILAR STRUCTURES: No masses. Contour normal. HEART AND VASCULAR STRUCTURES: Heart normal in size. Normal vasculature. BONES: No acute findings. HARDWARE: None in the chest. OTHER: No other significant finding. IMPRESSION: NO ACUTE RADIOGRAPHIC FINDING IN THE CHEST. TECHNICAL DOCUMENTATION: JOB ID: [id number] [employer]- All Rights Reserved Reading location - IP/workstation name: [email or web address]
--- NOTE | 2019-09-02 09:51 | EKG REPORT ---
SEVERITY:- OTHERWISE NORMAL ECG - SINUS RHYTHM BORDERLINE LEFT AXIS DEVIATION : Confirmed by: Leann Luna MD 02-Sep-2019 09:51:06
--- NOTE | 2019-09-02 14:47 | RADIOLOGY REPORT (SQ) ---
EXAM DESCRIPTION: NM WHOLE BODY BONE SCAN COMPLETED DATE/TIME: 09/02/2019 2:35 pm REASON FOR STUDY: eval prostate/possible mets T84.021A DISLOCATION OF INTERNAL LEFT HIP PROSTHESIS, INIT E Z98.890 OTHER SPECIFIED POSTPROCEDURAL STATES C61 MALIGNANT NEOPLASM OF PROSTATE COMPARISON: Radiographs 09/02/2019 - 03/27/2019 RADIONUCLIDE AND DOSE: 20 millicuries Tc99m HDP. The route of agent administration: Intravenous. ADDITIONAL DRUGS AND DOSES: None. TECHNIQUE: Routine delayed images at 3 hours post radionuclide injection acquired of the bony skelet on including anterior and posterior whole-body projections and additional focused images as needed. LIMITATIONS: None. FINDINGS: BONES: There is focal uptake in the left posterior 11th rib. No other significant abnorma lity is seen. Bilateral knee arthroplasties are present. KIDNEYS: Symmetric excretion without obstruction. OTHER: No other significant finding. IMPRESSION: There is focal uptake in the posterior 11th rib on the left that may be secondary to tra jerilyn. Recommend historical correlation. Cannot exclude an isolated metastasis. Recommend left rib f ilms. COMMENT: Quality measure 147: Current bone scan is compared with any available plain radiographs, p rior bone scans, and CT/MRI. TECHNICAL DOCUMENTATION: JOB ID: [id number] [employer]- All Rights Reserved Reading location - IP/workstation name: [email or web address]
[2019-09-02] MEDS: MORPHINE SULFATE 10 MG/ML INJ IV PRN (16:35)
[2019-09-03] MEDS: RINGERS SOLUTION,LACTATED 1,000 ML IV PRN ×3 (00:27→23:34)
[2019-09-03] MEDS: OXYCODONE HCL IR 5 MG TABLET PO PRN ×3 (00:41→17:39)
[2019-09-03] MEDS ORDERED: VANCOMYCIN HCL 1,000 MG in DEXTROSE 5%-WATER 250 ML IV PRN (05:00)
[2019-09-03] MEDS ORDERED: TRANEXAMIC ACID 1,000 MG in DEXTROSE 5%-WATER 50 ML IV PRN (05:00)
[2019-09-03] MEDS ORDERED: TRANEXAMIC ACID INJ/PF 1,000 MG/10 ML SDV IV PRN (05:00)
[2019-09-03] MEDS: MORPHINE SULFATE 10 MG/ML INJ IV PRN ×2 (06:19→17:10)
[2019-09-03] MEDS ORDERED: IPRATROPIUM/ALBUTEROL 0.5-2.5 MG/3 ML AMPUL NEB ONE (08:36)
[2019-09-03] MEDS ORDERED: TRANEXAMIC ACID INJ/PF 1,000 MG/10 ML SDV ONE ×5 (08:46→13:21)
[2019-09-03] MEDS ORDERED: PROPOFOL INJ 200 MG/20 ML VIAL IV ONE (08:58)
[2019-09-03] MEDS ORDERED: FENTANYL CITRATE INJ/PF 100 MCG/2 ML AMPUL ONE (08:58)
[2019-09-03] MEDS ORDERED: MIDAZOLAM 2 MG/2 ML INJ ONE (08:58)
[2019-09-03] MEDS ORDERED: LIDOCAINE 0.5% INJ-PF (5 MG/ML) 50 ML SDV ONE (08:59)
[2019-09-03] MEDS ORDERED: FENTANYL CITRATE INJ/PF 250 MCG/5 ML AMPULE ONE (09:50)
[2019-09-03] MEDS ORDERED: PROMETHAZINE HCL INJ 25 MG/1 ML VIAL IV PRN ×2 (10:42)
[2019-09-03] MEDS ORDERED: DIPHENHYDRAMINE HCL 50 MG/ML VIAL IV PRN ×2 (10:42→11:48)
[2019-09-03] MEDS ORDERED: MEPERIDINE HCL/PF INJ 25 MG/1 ML DISP.SYRIN IV PRN (10:42)
[2019-09-03] MEDS ORDERED: MORPHINE SULFATE 10 MG/ML INJ IV PRN (10:42)
[2019-09-03] MEDS ORDERED: ONDANSETRON HCL INJ/PF 4 MG/2 ML SDV IV PRN ×2 (10:42→11:48)
[2019-09-03] MEDS ORDERED: OXYCODONE-ACETAMINOPHEN 5-325 MG TABLET PO PRN ×2 (10:42)
[2019-09-03] MEDS ORDERED: FENTANYL CITRATE INJ/PF 100 MCG/2 ML AMPUL IV PRN ×3 (10:42)
[2019-09-03] MEDS ORDERED: ACETAMINOPHEN 325 MG TABLET PO PRN (11:48)
[2019-09-03] MEDS ORDERED: OXYCODONE HCL IR 5 MG TABLET PO PRN (11:48)
[2019-09-03] MEDS ORDERED: ONDANSETRON 4 MG TAB.RAPDIS PO PRN (11:48)
[2019-09-03] MEDS ORDERED: ZOLPIDEM TARTRATE 5 MG TABLET PO PRN (11:48)
[2019-09-03] MEDS ORDERED: RINGERS SOLUTION,LACTATED 1,000 ML IV PRN (11:48)
[2019-09-03] MEDS ORDERED: MAG HYDROX/AL HYDROX/SIMETH SUSP 30 ML UDCUP PO PRN (11:48)
--- NOTE | 2019-09-03 11:59 | Operative Report ---
Operative Report DATE OF SURGERY: 09/03/19 PREOPERATIVE DIAGNOSIS: Mechanical instability left hip arthroplasty OPERATION: Left hip revision arthroplasty SURGEON: RIGO TREJO ANESTHESIA: GA TISSUE REMOVED OR ALTERED: Cultures to microbiology. Tissue to pathology for frozen section. Tissue to pathology for permanent section. Implants to CSS ESTIMATED BLOOD LOSS: 1250 PROCEDURE: With the patient in a right lateral decubitus position on the operating table the left hindquarter and lower extremity are prepped and draped in sterile fashion. Patient had a previous anterior approach the hip. In this case a posterior approach the hip was selected. A curvilinear incision made over the greater trochanter posterior approach the hip was taken. Upon penetrating the muscular layer there is a large hematoma that is elaborated. This is sent for culture and sensitivity. The femoral head is delivered into the field and disimpacted. The acetabulum was then exposed. There is a very dense layer of fibrous tissue that almost has a cauliflower type appearance that has taken up residence in the acetabulum. Presumably this is why I was unable to perform a closed reduction. The tissue is tenacious and difficult to cut with a knife, with electrocautery, or tear with a rondure. It is a piece is taken and sent to pathology for frozen section. The report from Dr. Tran is that it shows chronic inflammation and its a dense fibrous tissue. A trial head is now placed onto the existing stem with the acetabular cleared of soft tissue. The previous head was had a 5 mm neck extension ceramic and was significantly marked with metallic artifact from previous dislocations.. Alternative neck extensions were 8.5, 12, and 15 in each of these was tried in succession. There was adequate soft tissue tension with a 15 mm head neck extension on the 36 mm diameter head. However there is still relatively easy posterior dislocation with flexion abduction internal rotation and this seemed to have come from anterior impingement. When the underlying acetabular component is examined there is deformity along the anterior inferior rim consistent with an impingement. Because I was not able to pain satisfactory stability even with the longus neck length I proceeded to expose the acetabulum and remove the underlying polyethylene liner. This 36 mm flat liner which as mentioned previously wear at the anterior inferior border. A trial liner was now placed that lateralizes the head 4 mm and provides a 10 mm high wall restriction that is placed somewhere between 2 and 3:00 on the face of the dial. Trial reductions were again performed using the 8.5, 12 and subsequently 15 mm next on a 36 mm trial head. Adequate stability seems to be with a 15 mm neck extension. Anything less than this there continued to be relatively easy dislocation posteriorly. Subsequently a Rina [place] 36 mm polyethylene liner with a 4 mm lateralization and a 10 degree high wall is impacted into the existing cup with the high wall between 2 and 3:00 on the face of the dial. His stability is just tested with a Carmelina clamp. Next to try reduction was again performed with 36 mm head and increasing neck lengths. Again 15 mm neck length provides adequate stability such that I can hold the toe with the leg in a abducted, flexed, and internally rotated position without the hip reducing spontaneously. The hip is dislocated. The final 36 mm chrome cobalt head with a 15 mm neck extension is impacted onto the trunnion. The hip is reduced. The wound was cyn air with pulse lavage of normal saline containing Betadine. Subsequently tranexamic acid dissolved in normal saline is bathed in the surgical bed because of continued ooze. The wound was then closed in layers with interrupted Vicryl followed by Dermabond. A sterile compressive dressing followed by an abduction pillow were applied patient's return to the PACU.
[2019-09-03] MEDS ORDERED: TRANEXAMIC ACID INJ/PF 1,000 MG/10 ML SDV IV ONE (13:00)
--- NOTE | 2019-09-03 13:00 | RADIOLOGY REPORT (SQ) ---
EXAM DESCRIPTION: PELVIS AP COMPLETED DATE/TIME: 09/03/2019 12:38 pm REASON FOR STUDY: Post Op Long Cassette in PACU T84.021A DISLOCATION OF INTERNAL LEFT HIP PROSTHES IS, INIT E Z98.890 OTHER SPECIFIED POSTPROCEDURAL STATES C61 MALIGNANT NEOPLASM OF PROSTATE COMPARISON: 08/31/2019 NUMBER OF VIEWS: One view TECHNIQUE: AP Pelvis LIMITATIONS: None. FINDINGS: MINERALIZATION: Normal. HIPS: Dislocation of the left hip prosthesis has been reduced. PELVIS AND SACRUM: No acute fracture or dislocation. No worrisome bone lesions. PUBIS AND ISCHIUM: No acute fracture. LOWER LUMBAR SPINE: Lower lumbar scoliosis, degenerative disc disease, and spondylosis. SOFT TISSUES: No findings. OTHER: No other significant finding. IMPRESSION: Successful reduction. COMMENT: Pelvic fractures are often occult on plain radiographs. If strong clinical suspicion for f racture, recommend CT or MR. TECHNICAL DOCUMENTATION: JOB ID: [id number] [email or web address] Rights Reserved Reading location - IP/workstation name: [email or web address]
[2019-09-03 13:19] LABS: HEMATOCRIT 30.9 % (37.9-51.0); MEAN CORPUSCULAR HEMOGLOBIN 24.8 pg (27.0-33.4); MEAN CORPUSCULAR HGB CONC 32.3 g/dL (32.0-36.0); MEAN CORPUSCULAR VOLUME 77 fl (80-97); PLATELET COUNT 172 10^3/uL (150-450); RED BLOOD COUNT 4.02 10^6/uL (4.35-5.55); RED CELL DISTRIBUTION WIDTH 16.4 % (11.5-14.0); WHITE BLOOD COUNT 11.3 10^3/uL (4.0-10.5)
[2019-09-03 13:26] LABS: INTERNATIONAL RATION (INR) 1.19; PROTHROMBIN TIME 15.2 SEC (11.4-15.4)
[2019-09-03] MEDS ORDERED: ROCURONIUM BROMIDE INJ 50 MG/5 ML VIAL IV ONE (15:10)
[2019-09-03] MEDS ORDERED: SUCCINYLCHOLINE CHLORIDE INJ 200 MG/10 ML VIAL ONE (15:10)
[2019-09-03] MEDS: GABAPENTIN 400 MG CAPSULE PO SCH ×2 (15:17→21:06)
[2019-09-03] MEDS: SENNOSIDES/DOCUSATE 8.6-50 MG 1 EACH TABLET PO SCH (17:11)
[2019-09-03] MEDS: IBUPROFEN 800 MG in NORMAL SALINE 250 ML IV SCH (18:30)
[2019-09-03] MEDS: OXYCODONE HCL SR 10 MG TABLET PO SCH (21:06)
[2019-09-03] MEDS: ATORVASTATIN CALCIUM 10 MG TABLET PO SCH (21:06)
[2019-09-03] MEDS ORDERED: VANCOMYCIN HCL 1,000 MG in DEXTROSE 5%-WATER 250 ML IV ONE (23:50)
[2019-09-04] MEDS: IBUPROFEN 800 MG in NORMAL SALINE 250 ML IV SCH ×3 (03:16→17:00)
[2019-09-04] MEDS: OXYCODONE HCL IR 5 MG TABLET PO PRN (05:08)
[2019-09-04] MEDS: PANTOPRAZOLE SODIUM 40 MG TABLET.DR PO SCH (05:08)
[2019-09-04] MEDS: GABAPENTIN 400 MG CAPSULE PO SCH ×3 (05:08→21:05)
[2019-09-04 05:31] LABS: HEMATOCRIT 26.9 % (37.9-51.0); MEAN CORPUSCULAR HEMOGLOBIN 25.5 pg (27.0-33.4); MEAN CORPUSCULAR HGB CONC 33.4 g/dL (32.0-36.0); MEAN CORPUSCULAR VOLUME 76 fl (80-97); PLATELET COUNT 158 10^3/uL (150-450); RED BLOOD COUNT 3.52 10^6/uL (4.35-5.55); RED CELL DISTRIBUTION WIDTH 16.6 % (11.5-14.0); WHITE BLOOD COUNT 9.5 10^3/uL (4.0-10.5)
[2019-09-04 05:55] LABS: ANION GAP 9 (5-19); BLOOD UREA NITROGEN 16 mg/dL (7-20); CALCIUM 9.7 mg/dL (8.4-10.2); CARBON DIOXIDE 26 mmol/L (22-30); CHLORIDE 100 mmol/L (98-107); GLUCOSE 110 mg/dL (75-110); POTASSIUM 3.9 mmol/L (3.6-5.0)
[2019-09-04] MEDS: OXYCODONE HCL SR 10 MG TABLET PO SCH ×2 (09:52→21:05)
[2019-09-04] MEDS: ASPIRIN 81 MG TABLET, ENT COATED PO SCH (09:52)
[2019-09-04] MEDS: SENNOSIDES/DOCUSATE 8.6-50 MG 1 EACH TABLET PO SCH ×2 (09:52→17:00)
[2019-09-04] MEDS: AMLODIPINE BESYLATE 10 MG TABLET PO SCH (09:52)
[2019-09-04] MEDS: PRENATAL VITAMIN W DHA CAPSULE PO SCH (09:52)
[2019-09-04] MEDS: CHLORTHALIDONE 25 MG TABLET PO SCH (09:53)
[2019-09-04] MEDS: ATORVASTATIN CALCIUM 10 MG TABLET PO SCH (21:05)
[2019-09-05] MEDS: IBUPROFEN 800 MG in NORMAL SALINE 250 ML IV SCH ×2 (01:27→10:19)
[2019-09-05] MEDS: GABAPENTIN 400 MG CAPSULE PO SCH (05:13)
[2019-09-05] MEDS: OXYCODONE HCL IR 5 MG TABLET PO PRN (05:13)
[2019-09-05] MEDS: PANTOPRAZOLE SODIUM 40 MG TABLET.DR PO SCH (05:13)
[2019-09-05 06:14] LABS: HEMATOCRIT 24.8 % (37.9-51.0); HEMOGLOBIN 8.1 g/dL (13.5-17.0); MEAN CORPUSCULAR HEMOGLOBIN 25.4 pg (27.0-33.4); MEAN CORPUSCULAR HGB CONC 32.9 g/dL (32.0-36.0); MEAN CORPUSCULAR VOLUME 77 fl (80-97); PLATELET COUNT 146 10^3/uL (150-450); RED CELL DISTRIBUTION WIDTH 16.7 % (11.5-14.0); WHITE BLOOD COUNT 9.2 10^3/uL (4.0-10.5)
--- NOTE | 2019-09-05 07:52 | PDOC DISCHARGE SUMMARY ---
Impression - Admit/DC Date/PCP Admission Date/Primary Care Provider: 09/02/19 11:56 GREGORIO MORRIS JR, MD Discharge Date: 09/05/19 - Discharge Diagnosis (1) Failure of left total hip arthroplasty with dislocation of hip Is this a current diagnosis for this admission?: Yes (2) Prostate carcinoma Is this a current diagnosis for this admission?: Yes - Additional Information Resuscitation Status: Full Code Discharge Diet: Regular Discharge Activity: Balance Activity w/Rest, No tub bath Referrals: GREGORIO MORRIS JR, MD [Primary Care Provider] - Follow up as needed Home Medications: Amlodipine Besylate [Norvasc 10 mg Tablet] 10 mg PO DAILY 08/31/19 Atorvastatin Calcium [Lipitor 10 mg Tablet] 10 mg PO QHS 08/31/19 Chlorthalidone [Hygroton 25 mg Tablet] 25 mg PO DAILY 08/31/19 Gabapentin [Neurontin 400 mg Capsule] 400 mg PO Q8 08/31/19 Meloxicam [Mobic 15 mg Tablet] 15 mg PO DAILY 08/31/19 Naproxen Sodium [Aleve] 440 mg PO Q8HP PRN 08/31/19 Sildenafil Citrate [Viagra] 100 mg PO PRN PRN 08/31/19 History of Present Illiness History of Present Illness: Patient is a 58-year-old black male status post bilateral hip arthroplasty in [place] in 2016. Patient subsequently developed 3 episodes of prosthetic dislocation of the left hip the last of which was reducible even under general anesthetic. [facility] was admitted for a left hip revision arthroplasty Hospital Course Hospital Course: Patient underwent a fairly complex left hip revision arthroplasty in the operating room. Procedure was complicated by hypertrophic synovitis and chronic laboratory process. This was accompanied by significant blood loss. Patient was returned to floor in satisfactory condition. Hematocrit remained above 26%. He makes progress with physical therapy. Patient undergoes a bone scan as part of his metastatic prostate carcinoma work-up which is occurring in [place]. Physical Exam Vital Signs: Temp Pulse Resp BP Pulse Ox 36.7 C 89 17 127/61 H 98 09/04/19 23:47 09/04/19 23:47 09/04/19 23:47 09/04/19 23:47 09/04/19 23:47 Intake & Output 09/04/19 09/05/19 09/06/19 06:59 06:59 06:59 Intake Total 7150 3010 Output Total 6550 2300 Balance 600 710 Weight 102.6 kg 101.6 kg General appearance: PRESENT: no acute distress Head exam: PRESENT: normocephalic Respiratory exam: PRESENT: unlabored Cardiovascular exam: PRESENT: RRR Pulses: PRESENT: +1 pedal pulses bilateral GI/Abdominal exam: PRESENT: soft Musculoskeletal exam: PRESENT: other - Left hip dressing with a small amount of drainage. There is minimal pedal edema. Distal neurovascular examination is intact. Leg length inequality present. Neurological exam: PRESENT: alert, awake, oriented to person, oriented to place, oriented to time, oriented to situation. ABSENT: motor sensory deficit Psychiatric exam: PRESENT: appropriate affect, normal mood. ABSENT: homicidal ideation, suicidal ideation Skin exam: PRESENT: dry, intact, warm. ABSENT: cyanosis, rash Results Laboratory Results: WBC 9.2 10^3/uL (4.0-10.5) 09/05/19 03:44 RBC 3.20 10^6/uL (4.35-5.55) L 09/05/19 03:44 Hgb 8.1 g/dL (13.5-17.0) L 09/05/19 03:44 Hct 24.8 % (37.9-51.0) L 09/05/19 03:44 MCV 77 fl (80-97) L 09/05/19 03:44 MCH 25.4 pg (27.0-33.4) L 09/05/19 03:44 MCHC 32.9 g/dL (32.0-36.0) 09/05/19 03:44 RDW 16.7 % (11.5-14.0) H 09/05/19 03:44 Plt Count 146 10^3/uL (150-450) L 09/05/19 03:44 Lymph % (Auto) 27.5 % (13-45) 08/31/19 18:25 Kaufman % (Auto) 7.9 % (3-13) 08/31/19 18:25 Eos % (Auto) 4.4 % (0-6) 08/31/19 18:25 Baso % (Auto) 0.9 % (0-2) 08/31/19 18:25 Absolute Neuts (auto) 5.3 10^3/uL (1.7-8.2) 08/31/19 18:25 Absolute Lymphs (auto) 2.5 10^3/uL (0.5-4.7) 08/31/19 18:25 Absolute Monos (auto) 0.7 10^3/uL (0.1-1.4) 08/31/19 18:25 Absolute Eos (auto) 0.4 10^3/uL (0.0-0.6) 08/31/19 18:25 Absolute Basos (auto) 0.1 10^3/uL (0.0-0.2) 08/31/19 18:25 Seg Neutrophils % 59.3 % (42-78) 08/31/19 18:25 ESR 52 mm/hr (0-20) H 09/02/19 03:38 PT 15.2 SEC (11.4-15.4) 09/03/19 12:58 INR 1.19 09/03/19 12:58 Sodium 134.7 mmol/L (137-145) L 09/04/19 03:27 Potassium 3.9 mmol/L (3.6-5.0) 09/04/19 03:27 Chloride 100 mmol/L (98-107) 09/04/19 03:27 Carbon Dioxide 26 mmol/L (22-30) 09/04/19 03:27 Anion Gap 9 (5-19) 09/04/19 03:27 BUN 16 mg/dL (7-20) 09/04/19 03:27 Creatinine 1.06 mg/dL (0.52-1.25) 09/04/19 03:27 Est GFR ( Amer) > 60 (>60) 09/04/19 03:27 Est GFR (MDRD) Non-Af > 60 (>60) 09/04/19 03:27 Glucose 110 mg/dL (75-110) 09/04/19 03:27 Calcium 9.7 mg/dL (8.4-10.2) 09/04/19 03:27 C-Reactive Protein 24.3 mg/L (<10.0) H 09/02/19 03:38 Prostate Specific Ag 8.830 ng/mL (<4.00) H 09/02/19 03:38 Blood Type O POSITIVE 09/02/19 03:38 Antibody Screen NEGATIVE 09/02/19 03:38 Impressions: Hip X-Ray 08/31/19 00:00 IMPRESSION: Dislocation of the left MAGALI as detailed above. Pelvis X-Ray 08/31/19 00:00 IMPRESSION: No acute fracture. 4.5 cm lateral -3 cm superior left total hip arthroplasty Dislocation. Body Scan Nuclear Medicine 09/01/19 00:00 IMPRESSION: There is focal uptake in the posterior 11th rib on the left that may be secondary to trauma. Recommend historical correlation. Cannot exclude an isolated metastasis. Recommend left rib films. Fluoroscopy 09/01/19 00:00 IMPRESSION: IMAGE(S) OBTAINED DURING PROCEDURE. Hip X-Ray 09/01/19 00:00 IMPRESSION: IMAGE(S) OBTAINED DURING PROCEDURE. Chest X-Ray 09/02/19 08:00 IMPRESSION: NO ACUTE RADIOGRAPHIC FINDING IN THE CHEST. Pelvis X-Ray 09/03/19 11:50 IMPRESSION: Successful reduction. Plan Plan of Treatment: Patient to be discharged home with home health services and [facility]. Follow-up with Dr. Sweeney and [facility] for surgery in 2 weeks for wound evaluation. Patient will be furnished with a disc containing his radiology studies that he can take to [place] for follow-up with his urologist regarding an underlying prostate carcinoma. Time Spent: Less than 30 Minutes Stroke Is this a Stroke Patient?: No Stroke Pt being discharged on Anti-thrombolytic therapy?: Yes Acute Heart Failure - Is this a Heart Failure Patient?: No
[2019-09-05] MEDS: AMLODIPINE BESYLATE 10 MG TABLET PO SCH (10:19)
[2019-09-05] MEDS: CHLORTHALIDONE 25 MG TABLET PO SCH (10:19)
[2019-09-05] MEDS: SENNOSIDES/DOCUSATE 8.6-50 MG 1 EACH TABLET PO SCH (10:19)
[2019-09-05] MEDS: OXYCODONE HCL SR 10 MG TABLET PO SCH (10:19)
[2019-09-05] MEDS: ASPIRIN 81 MG TABLET, ENT COATED PO SCH (10:19)
[2019-09-05] MEDS: PRENATAL VITAMIN W DHA CAPSULE PO SCH (10:19)
[2019-09-05 11:48] VITALS: BP 127/61
== END 2019-09-05 13:04 | disposition home health service (06) | DRG 468 ==
LOC: ER 14:10 → EH 18:33 → 4N 09-01 00:19 → OBSVTOIN 09-02 11:56
PROVIDERS: ADMIT Orthopaedic Surgery; ATTEND Orthopaedic Surgery
PROC: 0SPB0JZ Removal of Synthetic Substitute from Left Hip Joint, Open Approach (ICD-10-PCS; 2019-09-03)
PROC: 0SRB02Z Replacement of Left Hip Joint with Metal on Polyethylene Synthetic Substitute, Open Approach (ICD-10-PCS; principal; 2019-09-03 09:00)
DX: T84.021A Dislocation of internal left hip prosthesis, initial encounter (principal); C61 Malignant neoplasm of prostate; M67.2 Synovial hypertrophy, not elsewhere classified; F17.210 Nicotine dependence, cigarettes, uncomplicated; E78.5 Hyperlipidemia, unspecified; I10 Essential (primary) hypertension; Z96.643 Presence of artificial hip joint, bilateral; Z96.653 Presence of artificial knee joint, bilateral
CPT/HCPCS: 01200; 01215; 36415; 71045; 72170; 78306; 80048; 84153; 85025; 85027; 85610; 85652; 86140; 86850; 86900; 86901; 87070; 87075; 87101; 87205; 88305; 88331; 93005; 93010; 94799; 96374; 96375; 96376; 99285; 99152; A9561; J0330; J1170; J1741; J2250; J2270; J2405; J2704; J3010; J3370; J3490; J7050; J7060; J7120; J7620; Q9969